=== PATIENT | female | born 1980 | race African-American/Black ===

== ENCOUNTER 2016-08-25 15:03 | Emergency (ER) | payer SELFPAY ==
[~2016-08-25 15:03] MED LIST: DIAZEPAM PO; ELIMITE60 GM TOP; FIORICET W/CODE1 CAP PO
== END 2016-08-25 17:30 | disposition home or self-care (01) ==
LOC: CED 15:03 → CFTX 15:03
DX: S23.3XXA Sprain of ligaments of thoracic spine, initial encounter (principal); S33.5XXA Sprain of ligaments of lumbar spine, initial encounter; Z98.890 Other specified postprocedural states; X50.0XXA Overexertion from strenuous movement or load, initial encounter
CPT/HCPCS: 84703; 99283

== ENCOUNTER 2016-11-03 18:36 | Emergency (ER) | payer BC ==
[~2016-11-03] VITALS: Ht 170.2 cm; Wt 65.8 kg
--- NOTE | ~2016-11-03 | CR281 ---
[facility] A Service of [facility] RADIOLOGY TEXT RESULTS PATIENT: MARIYA GERARD LOCATION: CFTX : 81 UNIT #: [id number] AGE: [address]: Stephen Ruiz SEX: F ORDER DR: [id number] [facility] [address] [place], [place] [address] [id number] E MR#: [id number] Acc #: [id number] NAME: MARIYA GERARD : 1980 SEX: F STUDY DATE/TIME: 11/03/2016 20:17 UNIT: [facility] ROOM: STUDY DESCRIPTION: CR Wrist Min 3 View Lt Attending Physician: Stephen Ruiz P.A.-C. Ordering Physician: Stephen Ruiz P.A.-C. Primary Care Physician: Primary Care Physician No MEDICAL IMAGING REPORT This report is preliminary unless electronic signature is present EXAM Left wrist, 11/03/2016 INDICATIONS 35-year-old female with pain in the wrist after a fall today, fell down the steps, lying on the side. TECHNIQUE Three views. No comparisons. FINDINGS The examination is negative. No acute fracture. Alignment preserved. IMPRESSION Negative. Dictated by... Juan Lee M.D. THIS IS AN ELECTRONICALLY VERIFIED REPORT Juan Lee M.D. at 11/04/2016 11:28 AM PAM/millie TD: 11/04/2016 02:54 JOB #: [id number] MEDICAL IMAGING REPORT Page 1 of 1 COPY
--- NOTE | ~2016-11-03 | CR181 ---
[facility] A Service of [facility] RADIOLOGY TEXT RESULTS PATIENT: MARIYA GERARD LOCATION: CFTX : 81 UNIT #: [id number] AGE: [address]: Stephen Ruiz SEX: F ORDER DR: [id number] [facility] [address] [place], [place] [address] [id number] E MR#: [id number] Acc #: [id number] NAME: MARIYA GERARD : 1980 SEX: F STUDY DATE/TIME: 11/03/2016 20:25 UNIT: [facility] ROOM: STUDY DESCRIPTION: CR Lumbar Spine 2 or 3 Views Attending Physician: Stephen Ruiz P.A.-C. Ordering Physician: Stephen Ruiz P.A.-C. Primary Care Physician: Primary Care Physician No MEDICAL IMAGING REPORT This report is preliminary unless electronic signature is present EXAM Lumbar series, 11/03/2016 INDICATIONS Pain in the lower and mid back today after a fall; fell down the steps, lying on the side. TECHNIQUE Three views. No comparisons. FINDINGS Probable vascular calcifications in the pelvis. There is no acute fracture, malalignment or significant degenerative change. There is at least mild to perhaps early moderate facet arthropathy on the left at L4-5. IMPRESSION 1. No acute fracture or malalignment. Degenerative changes of the facets, most prominent at L4-5 on the left. Dictated by... Juan Lee M.D. THIS IS AN ELECTRONICALLY VERIFIED REPORT Juan Lee M.D. at 11/04/2016 11:28 AM PAM/millie TD: 11/04/2016 02:56 JOB #: [id number] MEDICAL IMAGING REPORT Page 1 of 1 COPY
--- NOTE | ~2016-11-03 | CR243 ---
[facility] A Service of [facility] RADIOLOGY TEXT RESULTS PATIENT: MARIYA GERARD LOCATION: CFTX : 81 UNIT #: [id number] AGE: [address]: Stephen Ruiz SEX: F ORDER DR: [id number] [facility] [address] [place], [place] [address] [id number] E MR#: [id number] Acc #: [id number] NAME: MARIYA GERARD : 1980 SEX: F STUDY DATE/TIME: 11/03/2016 20:22 UNIT: [facility] ROOM: STUDY DESCRIPTION: CR Thoracic Spine 3 Views Attending Physician: Stephen Ruiz P.A.-C. Ordering Physician: Stephen Ruiz P.A.-C. Primary Care Physician: Primary Care Physician No MEDICAL IMAGING REPORT This report is preliminary unless electronic signature is present EXAM Thoracic series, 11/03/2016 INDICATION Fell down steps and lying on the side today. Pain in the low and mid back. TECHNIQUE Frontal, lateral and swimmer's views performed. No comparisons. FINDINGS Cervicothoracic junction intact. Minimal right mid thoracic curve. No acute fracture, malalignment or significant degenerative change. IMPRESSION Negative. Dictated by... Juan Lee M.D. THIS IS AN ELECTRONICALLY VERIFIED REPORT Juan Lee M.D. at 11/04/2016 11:28 AM Magdi TD: 11/04/2016 03:06 JOB #: [id number] MEDICAL IMAGING REPORT Page 1 of 1 COPY
== END 2016-11-03 21:17 | disposition home or self-care (01) ==
LOC: CFTX 18:36 → CED 18:36 → CFTX 20:07
DX: M54.5 Low back pain (principal); M54.6 Pain in thoracic spine; M25.532 Pain in left wrist; F17.210 Nicotine dependence, cigarettes, uncomplicated; W10.9XXA Fall (on) (from) unspecified stairs and steps, initial encounter; Y92.009 Unspecified place in unspecified non-institutional (private) residence as the place of occurrence of the external cause
CPT/HCPCS: 72072; 72100; 73110; 99283

== ENCOUNTER 2016-11-16 20:37 | Emergency (ER) | payer BC ==
[~2016-11-16] VITALS: Ht 172.7 cm; Wt 65.8 kg
[2016-11-16 21:29] LABS: BASOPHIL% 0.8 % (0-2.5); DIFF IND NO; EOSINOPHIL# 0.4 X10e3 (0-0.7); EOSINOPHIL% 6.8 % (0.0-7.0); HEMATOCRIT 42.1 % (35.0-45.0); HEMOGLOBIN 13.8 gm/dL (12.0-16.0); LYMPHOCYTE# 2.3 X10e3 (1.0-3.5); MEAN CELL VOLUME 91.3 FL (83-96); MEAN CORPUSCULAR HGB CONC 32.8 g/dL (30-36); MEAN PLATELET VOLUME 8.7 FL (6.5-11.5); MONOCYTE# 0.9 X10e3 (0-1.0); NEUTROPHIL# 2.1 X10e3 (1.5-7.1); NEUTROPHIL% 37.4 % (40-75); PLATELET COUNT 229 X10e3 (140-420); RED BLOOD COUNT 4.61 X10e (3.90-5.30); WHITE BLOOD COUNT 5.7 X10e3 (4.0-10.5)
[2016-11-16 22:22] LABS: ALBUMIN SERUM 4.2 g/dL (3.5-5.0); ALKALINE PHOSPHATASE 62 U/L (32-92); ALT (SGPT) 14 U/L (10-40); AST (SGOT) 17 U/L (10-42); BILIRUBIN, DIRECT <0.1 mg/dL (0.0-0.2); BILIRUBIN,INDIRECT 0.1 mg/dL (0.0-0.9); BILIRUBIN,TOTAL 0.2 mg/dL (0.2-2.0); BLOOD UREA NITROGEN 6 mg/dL (9-23); CALCIUM SERUM 9.6 mg/dL (8.4-10.2); CARBON DIOXIDE 27 mmol/L (22-31); CHLORIDE 107 mmol/L (100-111); CREATININE SERUM 0.8 mg/dL (0.6-1.4); GLOM FILT RATE Estimated 110.8 mL/min (>60); GLUCOSE FASTING 93 mg/dL (70-110); LIPASE 22 U/L (22-51); POTASSIUM 4.3 mmol/L (3.5-5.1); PROTEIN TOTAL SERUM 7.2 g/dL (6.0-8.3); SODIUM 142 mmol/L (135-145)
[2016-11-16 23:24] LABS: URINE SOURCE CLEAN CATCH
[2016-11-16 23:32] LABS: URINE APPEARANCE TURBID; URINE BILIRUBIN NEG (NEG); URINE BLOOD NEG (NEG); URINE COLOR YELLOW; URINE GLUCOSE NEG (NEG); URINE KETONE NEG (NEG); URINE LEUKOCYTE ESTERASE 1+ (NEG); URINE NITRATE NEG (NEG); URINE PROTEIN NEG (NEG); URINE SPECIFIC GRAVITY 1.018 (1.003-1.035)
[2016-11-16 23:36] LABS: CULTURE INDICATED? YES; U HYALINE CASTS AUWI 0-2 /[LPF]; URINE BACTERIA AUWI 1+ (NEGATIVE); URINE SQUAMOUS EPITHELIAL CELL FEW /[HPF]
== END 2016-11-17 00:05 | disposition home or self-care (01) ==
LOC: CED 20:37
DX: N39.0 Urinary tract infection, site not specified (principal); R11.2 Nausea with vomiting, unspecified; R19.7 Diarrhea, unspecified; Z98.890 Other specified postprocedural states
CPT/HCPCS: 36415; 80048; 80076; 81003; 83690; 84703; 85025; 87086; 99284

== ENCOUNTER 2016-12-04 20:47 | Emergency (ER) | payer BC | END 2016-12-04 22:30 | disposition home or self-care (01) | LOC: CED 20:47 → CFTX 20:47 | DX: S46.912A Strain of unspecified muscle, fascia and tendon at shoulder and upper arm level, left arm, initial encounter (principal); F17.210 Nicotine dependence, cigarettes, uncomplicated; X50.0XXA Overexertion from strenuous movement or load, initial encounter | CPT/HCPCS: 84703; 99283 ==

== ENCOUNTER 2016-12-11 15:04 | Emergency (ER) | payer BC ==
[~2016-12-11] VITALS: Ht 167.6 cm; Wt 65.8 kg
[2016-12-11 16:02] LABS: URINE SOURCE CLEAN CATCH
[2016-12-11 16:12] LABS: URINE APPEARANCE CLEAR; URINE BILIRUBIN NEG (NEG); URINE BLOOD NEG (NEG); URINE COLOR YELLOW; URINE GLUCOSE NEG (NEG); URINE KETONE NEG (NEG); URINE LEUKOCYTE ESTERASE TRACE (NEG); URINE NITRATE NEG (NEG); URINE PH 5.5 (5-8); URINE PROTEIN NEG (NEG); URINE SPECIFIC GRAVITY 1.029 (1.003-1.035)
[2016-12-11 16:15] LABS: CULTURE INDICATED? YES; URINE BACTERIA AUWI NEG (NEGATIVE); URINE SQUAMOUS EPITHELIAL CELL OCC /[HPF]
[2016-12-11 16:25] LABS: BASOPHIL# 0.1 X10e3 (0-0.3); BASOPHIL% 0.8 % (0-2.5); EOSINOPHIL# 0.3 X10e3 (0-0.7); EOSINOPHIL% 3.6 % (0.0-7.0); HEMATOCRIT 45.3 % (35.0-45.0); HEMOGLOBIN 14.9 gm/dL (12.0-16.0); LYMPHOCYTE# 2.1 X10e3 (1.0-3.5); LYMPHOCYTE% 30.1 % (17.0-45.0); MEAN CELL VOLUME 91.3 FL (83-96); MEAN CORPUSCULAR HGB CONC 32.9 g/dL (30-36); MEAN PLATELET VOLUME 8.5 FL (6.5-11.5); MONOCYTE# 0.8 X10e3 (0-1.0); MONOCYTE% 11.6 % (3.0-12.0); NEUTROPHIL# 3.8 X10e3 (1.5-7.1); NEUTROPHIL% 53.9 % (40-75); PLATELET COUNT 277 X10e3 (140-420); RED BLOOD COUNT 4.96 X10e (3.90-5.30); RED CELL DISTRIBUTION WIDTH 13.3 % (11.0-15.5)
[2016-12-11 16:26] LABS: DIFF IND NO
[2016-12-11 16:47] LABS: ALBUMIN SERUM 4.6 g/dL (3.5-5.0); BILIRUBIN, DIRECT 0.1 mg/dL (0.0-0.2); BILIRUBIN,INDIRECT 0.6 mg/dL (0.0-0.9); BILIRUBIN,TOTAL 0.7 mg/dL (0.2-2.0); BUN/CREATININE RATIO 11.66; CALCIUM SERUM 9.5 mg/dL (8.4-10.2); CREATININE SERUM 0.6 mg/dL (0.6-1.4); GLOM FILT RATE Estimated 136.9 mL/min (>60); POTASSIUM 4.3 mmol/L (3.5-5.1); PROTEIN TOTAL SERUM 7.8 g/dL (6.0-8.3)
== END 2016-12-11 20:30 | disposition home or self-care (01) ==
LOC: CED 15:04
DX: R10.12 Left upper quadrant pain (principal); F17.200 Nicotine dependence, unspecified, uncomplicated
CPT/HCPCS: 36415; 80048; 80076; 81003; 82150; 83690; 84703; 85025; 87086; 99284